=== PATIENT | male | born 1955 | race Caucasian/White ===

== ENCOUNTER 2021-05-13 05:34 | Day surgery (SDC) | payer MEDICARE, OTHER ==
[2021-05-13] MEDS ORDERED: Acetaminophen 500 MG Tab PO ONE (05:45)
[2021-05-13] MEDS ORDERED: Dextrose 5%-Lactated Ringers 1,000 ML IV SCH (06:00)
[2021-05-13] MEDS ORDERED: Bupivacaine 0.5%/EPINEPHrine 1:200,000 50 ML MDV ONE (06:35)
[2021-05-13] MEDS ORDERED: fentaNYL 250 MCG/5 ML SDV ONE (07:09)
[2021-05-13] MEDS ORDERED: Propofol 200 MG/20 ML SDV ONE (07:10)
[2021-05-13] MEDS ORDERED: Glycopyrrolate 0.2 MG/ML 5 ML MDV ONE (07:10)
[2021-05-13] MEDS ORDERED: Neostigmine Methylsulfate 1 MG/ML 5 ML Syringe ONE (07:10)
[2021-05-13] MEDS ORDERED: Rocuronium 50 MG/5 ML Vial ONE (07:10)
[2021-05-13] MEDS ORDERED: Dexamethasone 4 MG/ML SDV ONE (07:10)
[2021-05-13] MEDS ORDERED: Ondansetron 4 MG/2 ML SDV ONE (07:10)
[2021-05-13] MEDS ORDERED: cefOXitin 2 GM in Sodium Chloride 0.9% 50 ML IV ONE (07:15)
[2021-05-13] MEDS ORDERED: Ketamine 20 MG in Sodium Chloride 0.9% 19.8 ML IV SCH (07:30)
[2021-05-13] MEDS ORDERED: Ketamine 500 MG/5 ML MDV IV SCH (07:30)
[2021-05-13] MEDS ORDERED: fentaNYL 100 MCG/2 ML SDV ONE (07:45)
[2021-05-13] MEDS ORDERED: Ketorolac 30 MG/ML SDV ONE (07:59)
[2021-05-13] MEDS ORDERED: Lidocaine 1% 50 ML MDV ONE (08:00)
[2021-05-13] MEDS ORDERED: oxyCODONE 5 MG Tab PO PRN (09:45)
[2021-05-13] MEDS ORDERED: Ibuprofen 600 MG Tab PO PRN (09:45)
== END 2021-05-13 12:00 | disposition home or self-care (01) ==
LOC: JP.SDS 05:34
PROVIDERS: ATTEND Surgery
DX: K75.81 Nonalcoholic steatohepatitis (NASH) (principal); K81.1 Chronic cholecystitis; K82.8 Other specified diseases of gallbladder; K74.60 Unspecified cirrhosis of liver; K21.9 Gastro-esophageal reflux disease without esophagitis; E66.9 Obesity, unspecified
CPT/HCPCS: 36415; 47379; 47562; 80053; 83735; 84100; 85027; 88304; 88307; 88313; A9270; J0171; J0694; J1100; J1885; J2001; J2405; J2704; J2710; J2795; J3010; J3490; J7121